=== PATIENT | female | born 1940 | race Caucasian/White ===

== ENCOUNTER 2018-12-26 01:31 | Outpatient (CLI) | payer MEDICARE ==
--- NOTE | 2018-12-26 14:27 | RAD ---
EXAM: Chest PA and lateral: HISTORY: Preoperative exam. COMPARISON: None FINDINGS: Left-sided transvenous pacemaker with lead positioned over the right atrium, right ventricle and arpita nary sinus. Elongation of the aorta. Heart: Normal cardiac silhouette Aorta: Unremarkable Pulmonary vessels: Normal Costophrenic angles: Costophrenic angles are clear. Lungs: No consolidation or masses. Pneumothorax: No pneumothorax Osseous structures: No osseous abnormalities IMPRESSION: No acute cardiopulmonary process.
[2018-12-26 15:30] LABS: #Basophils 0.1 thou/uL (0.0-0.2); #Eosinphils 0.2 thou/uL (0.0-0.7); #Lymphocytes 2.8 thou/uL (1.20-3.40); #Monocytes 0.5 thou/uL (0.11-0.59); #Neutrophils 5.1 thou/uL (1.40-6.50); %Basophils 1.2 % (0.0-1.0); %Eosinophils 1.8 % (0.0-10.0); %Lymphocytes 31.9 % (21.0-51.0); %Monocytes 6.3 % (0.0-10.0); %Neutrophils 58.9 % (42.0-75.0); Hemoglobin 13.3 g/dL (12.0-16.0); Mean Corpuscular HGB CONC 33.2 g/dL (32.0-36.0); Mean Corpuscular Volume 93.4 fL (78.0-98.0); Mean Platelet Volume 7.3 fL (7.4-10.4); Platelet Count 288 thou/uL (130-400); RBC Distribution Width 12.9 % (11.5-14.5); Red Blood Cell (RBC) Count 4.29 mill/uL (4.20-5.40); White Blood Cell (WBC) Count 8.6 thou/uL (4.8-10.8)
[2018-12-26 15:31] LABS: Bilirubin Negative (Negative); Blood, Urine Negative (Negative); Clarity CLOUDY (Clear); Glucose, Urine (Dipstick) Negative (Negative); Leukocyte Large (Negative); Nitrite Positive (Negative); Protein, Urine (Dipstick) Negative (Neg-Trace); Specific Gravity, Urine 1.017 (1.002-1.036); Urobilinogen 0.2 mg/dL (0.2-1.0); pH, Urine 5.5 (5.0-9.0)
[2018-12-26 15:37] LABS: Bacteria/HPF 4+ HPF (None Seen); Hyaline Casts/LPF 4-6 HYALINE CAST LPF (0-3 Hyaline); INR-International Normal Ratio 0.9; PTT 30.7 SEC (22.9-36.1); Pathc Cast-AUWi Flag 0.68 (0-2.49); Prothrombin Time 12.6 SEC (12.0-14.7); Squamous Epithelial 0-3 HPF (0-3)
[2018-12-26 15:50] LABS: Anion Gap 12 mmol/L (10-20); BUN (Urea Nitrogen) 16 mg/dL (9.8-20.1); Calc. Creatinine Clearance 0 mL/min (70-130); Calcium 9.6 mg/dL (7.8-10.44); Carbon Dioxide 24 mmol/L (23-31); Chloride 105 mmol/L (98-107); Estimated GFR-MDRD 72; Glucose 69 mg/dL (83-110); Potassium 4.5 mmol/L (3.5-5.1); Sodium 136 mmol/L (136-145)
== END 2018-12-26 01:32 | disposition home or self-care (01) ==
LOC: LABBT 01:31
PROVIDERS: ATTEND Orthopaedic Surgery
DX: Z01.818 Encounter for other preprocedural examination (principal); M17.12 Unilateral primary osteoarthritis, left knee
CPT/HCPCS: 71046; 80048; 81001; 85025; 85610; 85730; 87081; 93005; 93010

== ENCOUNTER 2019-03-21 05:53 | Day surgery (SDC) | payer MEDICARE ==
[2019-03-20 10:41] VITALS: BMI 28.8
[2019-03-21] MEDS ORDERED: Fentanyl 100 MCG/2 ML VIAL ONE (06:27)
[2019-03-21] MEDS ORDERED: Midazolam HCl 2 mg/2 ml Vial ONE (06:27)
[2019-03-21 06:44] LABS: Hemoglobin 12.4 g/dL (12.0-16.0); Mean Corpuscular HGB CONC 33.3 g/dL (32.0-36.0); Mean Corpuscular Hemoglobin 30.4 pg (27.0-31.0); Mean Corpuscular Volume 91.1 fL (78.0-98.0); Mean Platelet Volume 6.7 fL (7.4-10.4); Platelet Count 299 thou/uL (130-400); RBC Distribution Width 12.7 % (11.5-14.5); Red Blood Cell (RBC) Count 4.09 mill/uL (4.20-5.40); White Blood Cell (WBC) Count 10.3 thou/uL (4.8-10.8)
[2019-03-21 07:02] LABS: Anion Gap 13 mmol/L (10-20); BUN (Urea Nitrogen) 19 mg/dL (9.8-20.1); Calc. Creatinine Clearance 70 mL/min (70-130); Calcium 9.1 mg/dL (7.8-10.44); Carbon Dioxide 21 mmol/L (23-31); Chloride 107 mmol/L (98-107); Estimated GFR-MDRD 68; Glucose 154 mg/dL (83-110); Potassium 4.1 mmol/L (3.5-5.1); Sodium 137 mmol/L (136-145)
[2019-03-21] MEDS ORDERED: Promethazine HCl 25 MG/ML VIAL IM PRN (07:54)
[2019-03-21] MEDS ORDERED: traMADol HCl 50 MG TAB PO PRN ×2 (07:54)
[2019-03-21] MEDS ORDERED: Ropivacaine 0.2% 550 ML 550 ML NERVE BLCK SCH (07:54)
[2019-03-21] MEDS ORDERED: Ondansetron PF 4 MG/2 ML Vial IVP PRN (07:54)
[2019-03-21] MEDS ORDERED: Zolpidem Tartrate 5 MG TAB PO PRN (07:54)
[2019-03-21] MEDS ORDERED: Fentanyl 100 MCG/2 ML VIAL IV PRN (07:55)
[2019-03-21] MEDS ORDERED: HYDROcodone/Acetaminophen 7.5/325 mg Tablet PO PRN ×2 (07:55→07:56)
[2019-03-21] MEDS ORDERED: Ondansetron PF 4 MG/2 ML Vial ONE (09:29)
[2019-03-21] MEDS ORDERED: ePHEDrine 50 MG/ML VIAL ONE (09:29)
[2019-03-21] MEDS ORDERED: Lidocaine 1% PF 5 ML VIAL ONE (09:29)
[2019-03-21] MEDS ORDERED: Dexamethasone 20 MG/5 ML VIAL ONE (09:29)
[2019-03-21] MEDS ORDERED: PROPOFOL 200 MG/20 ML VIAL ONE (09:29)
[2019-03-21] MEDS ORDERED: Ropivacaine 0.5% HCl/PF (150 MG/30 ML VIAL) ONE (10:01)
[2019-03-21] MEDS ORDERED: Ropivacaine 0.2% HCl/PF (40 MG/20 ML VIAL) ONE (10:01)
--- NOTE | 2019-03-21 13:37 | RAD ---
Intraoperative imaging of the left wrist: DATE: 03/21/2019. COMPARISON: None. HISTORY: ORIF. FINDINGS: Two intraoperative images demonstrate a volar fixation plate associated with the distal right radius treating a distal right radial fracture. There is anatomic alignment at the fracture site. IMPRESSION: Open reduction internal fixation as above. POS: OFF
--- NOTE | 2019-03-21 14:55 | OP ---
DATE OF PROCEDURE: 03/21/2019 PREOPERATIVE DIAGNOSIS: Displaced intra-articular fracture of the distal radius, left. POSTOPERATIVE DIAGNOSIS: Displaced intra-articular fracture of the distal radius, left. PROCEDURE PERFORMED: Open reduction and internal fixation of left distal intra-articular radius fracture. STRUCTURAL STEEL FITTER: Ana Webster PA-C ESTIMATED BLOOD LOSS: Minimal. SPECIMENS: None. DRAINS: None. COMPLICATIONS: None. DESCRIPTION OF PROCEDURE: The patient was taken to the operating room, where general anesthesia was induced. Left arm was prepped and draped in usual sterile fashion. I made an FCR approach. Dissection was carried down to the fracture. The fracture was exposed periosteally. The fracture was cleaned of debris and irrigated, anatomically reduced. A [employer] 3-hole locking plate narrow type variable angle was placed on the volar aspect. I compressed the radial styloid fracture back to the remaining articular fragment, placed styloid screws and then placed three more screws to the main distal articular fragment and this was attached to the shaft using 2 bone screws. X-ray showed excellent reduction with excellent screw length. Tourniquet was released. Irrigation was performed. Hemostasis was obtained. Subcutaneous tissue was closed with 2-0 Vicryl. Skin was closed juancarlos. The patient was placed in a splint. Job ID: [id number]
== END 2019-03-21 11:28 | disposition home or self-care (01) ==
LOC: SDC 05:53
PROVIDERS: ATTEND Orthopaedic Surgery
PROC: 3E0T3BZ Introduction of Anesthetic Agent into Peripheral Nerves and Plexi, Percutaneous Approach (ICD-10-PCS; principal; 2019-03-21)
PROC: 0PSJ04Z Reposition Left Radius with Internal Fixation Device, Open Approach (ICD-10-PCS; 2019-03-21)
DX: S52.572A Other intraarticular fracture of lower end of left radius, initial encounter for closed fracture (principal); S52.512A Displaced fracture of left radial styloid process, initial encounter for closed fracture; G89.18 Other acute postprocedural pain; Z79.82 Long term (current) use of aspirin; Z79.84 Long term (current) use of oral hypoglycemic drugs; Z79.899 Other long term (current) drug therapy; Z88.8 Allergy status to other drugs, medicaments and biological substances; Z96.651 Presence of right artificial knee joint
CPT/HCPCS: 25608; 64416; 73110; 76000; 80048; 85027; A4306; C1713 ×2; J0690; J1100; J2001; J2250; J2405; J2704; J2795; J3010; J3490